=== PATIENT | female | born 1980 | race Caucasian/White ===

== ENCOUNTER 2018-11-21 06:35 | Outpatient (CLI) | payer OTHER ==
[2018-11-27] MEDS ORDERED: CHILDREN'S15 MG/1 M1 PO (11:30)
== END 2018-11-21 07:00 | disposition home or self-care (01) ==
LOC: LAB 06:35
DX: K73.8 Other chronic hepatitis, not elsewhere classified (principal); R63.4 Abnormal weight loss; R79.0 Abnormal level of blood mineral; E53.9 Vitamin B deficiency, unspecified; E55.9 Vitamin D deficiency, unspecified; J34.89 Other specified disorders of nose and nasal sinuses; Z32.00 Encounter for pregnancy test, result unknown; E53.8 Deficiency of other specified B group vitamins; E78.00 Pure hypercholesterolemia, unspecified; R94.31 Abnormal electrocardiogram [ECG] [EKG]; R05 Cough; J15.0 Pneumonia due to Klebsiella pneumoniae

== ENCOUNTER 2018-11-28 07:00 | Day surgery (SDC) | payer OTHER ==
[~2018-11-28] VITALS: Ht 160 cm; Wt 63.5 kg
[~2018-11-28 07:00] MED LIST: CHILDREN'S15 MG/1 M1 PO
[2018-11-28] MEDS ORDERED: FERROUS SULFAT325 MG PO (13:40)
== END 2018-11-28 17:00 | disposition home or self-care (01) ==
LOC: CIR.AMB 07:00 → O/R 09:00 → EDSTATUS 09:00 → O/R 12:03 → CIR.AMB 17:00 → O/R 22:50
PROVIDERS: Specialist
PROC: 0HBV0ZZ Excision of Bilateral Breast, Open Approach (ICD-10-PCS; 2018-11-28)
PROC: 0JB80ZZ Excision of Abdomen Subcutaneous Tissue and Fascia, Open Approach (ICD-10-PCS; principal; 2018-11-28 12:00)
DX: E65 Localized adiposity (principal); N64.81 Ptosis of breast; Z98.84 Bariatric surgery status